=== PATIENT | female | born 1985 | race Caucasian/White ===

== ENCOUNTER 2019-04-01 08:36 | Inpatient (IN) | payer BC ==
[~2019-04-01] VITALS: Ht 170.2 cm; Wt 125.6 kg
[2019-04-01 09:26] VITALS: Ht 170.2 cm; Wt 125.6 kg
[2019-04-01] MEDS ORDERED: MISOPROSTOL 200 MCG TAB PR PRN ×2 (09:30→12:00)
[2019-04-01] MEDS ORDERED: CEFAZOLIN 3 GM in DEXTROSE 5% 100 ML IV ONE (09:30)
[2019-04-01] MEDS ORDERED: OXYTOCIN 30 UNITS/LR 500 ML IV PRN ×2 (09:30→12:00)
[2019-04-01] MEDS ORDERED: METHYLERGONOVINE 0.2 MG INJ IM PRN ×2 (09:30→12:00)
[2019-04-01] MEDS ORDERED: CARBOPROST 250 MCG INJ IM PRN ×2 (09:30→12:00)
--- NOTE | 2019-04-01 10:06 | PREAC ---
Date/Time of Note Date/Time of Note DATE: 04/01/19 TIME: 10:05 Anesthesia Eval and Record Evaluation Time Pre-Procedure Interview DATE: 04/01/19 TIME: 10:05 Age 33 Sex female NPO: 8 hrs Preoperative diagnosis previous c section Planned procedure repeat c section Past Medical History Past Medical History: Includes GI: Obesity Surgery & Anesthesia Issues No known issue Meds Anticoagulation: No Beta Spencer within 24 hr: No Reason Beta Spencer not given: Pt. not on B-Spencer Current Medications Lactated Ringer's 1,000 ml @ 125 mls/hr Q8H IV ; Start 04/01/19 at 09:04 Cefazolin Sodium 3 gm/Dextrose 100 ml @ 100 mls/hr ONCE ONCE IV ; Start 04/01/19 at 09:30; Stop 04/01/19 at 10:29; Status UNV Oxytocin/Lactated Ringer's 500 ml @ 0 mls/hr ONCE PRN IV .VAGINAL BLEEDING; Start 04/01/19 at 09:30 Methylergonovine Maleate (Methergine) 0.2 mg ONCE PRN IM .VAGINAL BLEEDING; Start 04/01/19 at 09:30 Carboprost Tromethamine (Hemabate) 250 mcg ONCE PRN IM .VAGINAL BLEEDING; Start 04/01/19 at 09:30 Misoprostol (Cytotec) 1,000 mcg ONCE PRN SD .VAGINAL BLEEDING; Start 04/01/19 at 09:30 Meds reviewed: Yes Allergies Coded Allergies: Penicillins (Verified Allergy, Unknown, 04/01/19) Allergies Reviewed: Yes Labs/Studies Labs Reviewed: Reviewed by anesthesiologist Result Diagram: 04/01/19919 Laboratory Tests 04/01/19 09:20 test: N/A Pre-procedure Exam Airway: Adequate mouth opening, Adequate thyromental dist Mallampati: Mallampati IV Teeth: Normal Lung: Normal Heart: Normal ASA Physical Status ASA physical status: 2 Emergency: None Pre-operative Attestations Prior to commencing anesthesia and surgery, the patient was re-evaluated, there was verification of: *The patient's identity *The results of appropriate recent lab work and preoperative vital signs *The above evaluation not changing prior to induction *Anesthetic plan, risk benefits, alternative and complications discussed with patient/family; questions answered; patient/family understands, accepts and wishes to proceed. CYNTHIA KINSEY DO April 01, 2019 10:06
[2019-04-01] MEDS: LACTATED RINGER'S 1,000 ML IV SCH ×2 (10:07→10:27)
--- NOTE | 2019-04-01 10:07 | PREOPHP ---
DATE OF ADMISSION: 04/01/2019 HISTORY OF PRESENT ILLNESS: Ms. Thi Cooper is a 33-year-old, 6, para 3, EDC 9 intrauterine at 39 weeks gestational age, admitted today for elective repeat del [facility]. She denies any contractions, vaginal bleeding, or discharge. She reports good movement . Her care took place with Dr. Najera. PAST MEDICAL HISTORY: None. MEDICATIONS: vitamins. PAST SURGICAL HISTORY: x1 previous section secondary to twin gestation via IVF/surrogacy. OBSTETRICAL HISTORY: x1 vaginal delivery, x1 , x2 missed AB. GYNECOLOGIC HISTORY: 12, regular 3 to 4 days. She denies any sexually transmitted infections. Sexu ally active with 1 partner. SOCIAL HISTORY: She denies any smoking, drugs or alcohol. FAMILY HISTORY: None. REVIEW OF SYSTEMS: All within normal except history of present illness. PHYSICAL EXAMINATION: HEENT: Within normal. LUNGS: CTA bilateral. CARDIOVASCULAR: S1, S2, regular rhythm. ABDOMEN: Gravid, nontender. Negative CVA bilateral. EXTREMITIES: Negative. No calf tenderness. PELVIC: Vaginal exam deferred. heart tracing category 1. TOCO, occasional contractions. ASSESSMENT: 1. Term at 39 weeks gestational age, desires elective repeat delivery with bilate ral tubal sterilization. PLAN: Consent for a repeat delivery with bilateral tubal sterilization. Risks, benefits an d alternatives were explained. All questions were answered. Dictated By: CHRISTINE ORO MD ME/NTS Conf#: [id number] DID#: [id number] CC: CHRISTINE ORO MD;*EndCC*
[2019-04-01] MEDS ORDERED: CLINDAMYCIN 900 MG/D5W (PMX) 50 ML IVPB SCH ×2 (10:10→12:00)
[2019-04-01] MEDS ORDERED: NALOXONE (0.4 MG/ML) INJ IV PRN (10:30)
[2019-04-01] MEDS ORDERED: GENTAMICIN 80 MG/NS (PMX) 50 ML IVPB SCH (10:30)
[2019-04-01] MEDS ORDERED: ZOLPIDEM 5 MG TAB PO PRN (10:30)
[2019-04-01] MEDS ORDERED: ONDANSETRON 4 MG INJ IV PRN (10:30)
[2019-04-01] MEDS ORDERED: DIPHENHYDRAMINE 50 MG INJ IV PRN (10:30)
[2019-04-01] MEDS ORDERED: HYDROmorphONE 0.5 MG/0.5 ML SYG IV PRN ×2 (10:30)
[2019-04-01] MEDS ORDERED: PHENYLephrine (100 MCG/ML) 10ML SYG ONE (10:43)
[2019-04-01] MEDS ORDERED: morphine SULFATE/PF (10 MG/10 ML) INJ ONE (10:43)
[2019-04-01] MEDS ORDERED: FENTAnyl 50 MCG/ML VIAL ONE (10:43)
[2019-04-01] MEDS ORDERED: DEXAMETHASONE 4 MG/ML 1 ML INJ ONE (10:43)
[2019-04-01] MEDS ORDERED: OXYTOCIN 30 UNITS/LR 500 ML IV SCH ×2 (11:55→12:30)
--- NOTE | 2019-04-01 11:55 | OPPN ---
Date/Time of Note Date/Time of Note DATE: 04/01/19 TIME: 11:52 Operative Report Planned Procedure Procedure date April 01, 2019 Procedure(s) repeat low transverse CD with bilateral salpingectomy Performed by see signature line Call Center Receptionist: JHONY WILKS MD 2nd Call Center Receptionist none Anesthesiologist: CYNTHIA KINSEY DO Pre-procedure diagnosis iup at 39 wks ga previous CD desire elective CD with bilateral tubal sterilization [id number] Anesthesia Type: [id number] spinal Post-Procedure Post-procedure diagnosis same Findings a viable female 8/9 weight 3790 gram, normal uterus tubes and ovaries Estimated Blood Loss: 500 - 600 mls Specimen(s) right and left fallopian tubes Grafts/Implant(s) none Complication(s) none CHRISTINE ORO MD April 01, 2019 11:55
--- NOTE | 2019-04-01 11:58 | PAC ---
Date/Time of Note Date/Time of Note DATE: 04/01/19 TIME: 11:58 Post-Anesthesia Notes Post-Anesthesia Note Last documented vital signs 105/62 75 99% 98 19 Activity: WNL Respiratory function: WNL Cardiovascular function: WNL Mental status: Baseline Pain reasonably controlled: Yes Hydration appropriate: Yes Nausea/Vomiting absent: Yes CYNTHIA KINSEY DO April 01, 2019 11:58
[2019-04-01] MEDS ORDERED: NACL 0.9% 3 ML SYG IV SCH (12:00)
[2019-04-01] MEDS ORDERED: OXYCODONE/ACETAMINOPHEN (5/325) TAB PO PRN (12:00)
[2019-04-01 14:20] VITALS: BP 127/73; PULSE 77; RESP 18
[2019-04-01] MEDS: KETOROLAC 30 MG INJ IV PRN (14:36)
[2019-04-01 15:00] VITALS: BP 129/71; PULSE 80; RESP 18
[2019-04-01 16:15] VITALS: BP 117/68; PULSE 86; RESP 18
[2019-04-01] MEDS: CLINDAMYCIN 900 MG/D5W (PMX) 50 ML IVPB SCH (18:58)
[2019-04-01 20:00] VITALS: BP 101/59; PULSE 88; RESP 16
[2019-04-02] VITALS: BP 108/60; PULSE 86; RESP 17
[2019-04-02] MEDS: CLINDAMYCIN 900 MG/D5W (PMX) 50 ML IVPB SCH ×2 (02:30→10:46)
[2019-04-02 04:00] VITALS: BP 96/55; PULSE 86; RESP 17
[2019-04-02] MEDS: IBUPROFEN 800 MG TAB PO SCH ×3 (06:00→21:35)
[2019-04-02 08:00] VITALS: BP 117/57; PULSE 88; RESP 17
[2019-04-02] MEDS: KETOROLAC 30 MG INJ IV PRN (09:10)
--- NOTE | 2019-04-02 09:39 | OPR ---
DATE OF OPERATION: 04/01/2019 PREOPERATIVE DIAGNOSES: Intrauterine at 39 weeks gestational age, previous , umberto res elective repeat delivery with bilateral tubal sterilization. POSTOPERATIVE DIAGNOSES: Intrauterine at 39 weeks gestational age, previous , tariq ires elective repeat delivery with bilateral tubal sterilization. OPERATION PERFORMED: Repeat low transverse delivery with bilateral salpingectomy. SURGEON: Pacheco Oro M.D. PRESIDENTIAL SUPPORT SPECIALIST: Dr. Wyatt ANESTHESIA: Spinal. ANESTHESIOLOGIST: Dr. Colon. COMPLICATIONS: None. ESTIMATED BLOOD LOSS: 500 mL. FINDINGS: A viable female, 8 and 9 respectively at 1 and 5 minutes, weight 3790 grams. Normal uterus, tubes and ovaries. PATHOLOGY: Left and right fallopian tube. DESCRIPTION OF PROCEDURE: After explaining the risks, benefits and alternatives, the patient and con sent signed in chart, the patient was taken to the operating room where spinal anesthesia was found t o be adequate. She was then prepared and draped in normal sterile fashion in dorsal supine position with a leftward tilt. A Pfannenstiel skin incision was then made with a scalpel and carried to the u nderlying of the fascia. The fascia was incised in the midline and incision was extended laterally w ith Barron scissors. The superior aspect of fascial incision was grasped with curved clamps, elevated and the underlying rectus muscles dissected off bluntly. Attention was then turned to the inferior a spect of the incision which in similar fashion was grasped, tented up with curved clamps and rectus m uscle dissected off bluntly. The rectus muscle was in midline and the peritoneum was enter ed sharply with Metzenbaum scissors. The peritoneal incision was extended superiorly inferiorly with good visualization of bladder. The bladder blade was then inserted and the lower uterine segment in cised in transverse fashion with the scalpel. The uterine incision was extended laterally. The blad vania blade was removed and the 's head atraumatically. The nose and mouth were suctioned and co rd clamped and cut. The was handed off to the waiting big data solutions architect. The placenta was then re moved. The uterus extracted of all clots and debris. The uterine incision was repaired with 1-0 chr omic in a running locked fashion. A second layer of same suture was used for imbrication obtaining h emostasis. At this point, 2 Elian clamps were used to grasp the left fallopian tube. The entire l eft fallopian tube was excised with a 2-0 plain gut x2. Similarly, the right fallopian tube was exci sed. The uterus was returned to the abdomen. Hemostasis was assured. The gutters were cleared of a ll clots. The peritoneum and rectus abdominis muscles were reapproximated with 3-0 Vicryl in an inte rrupted fashion. The fascia was reapproximated with 0 Vicryl in a running fashion. The subcutaneous tissue was reapproximated with 2-0 plain gut in a running fashion. The skin was closed with absorba ble aniceto. The patient tolerated procedure well. Sponge, lap and needle counts were correct. The patient was taken to recovery room in stable condition. Dictated By: PACHECO KAPOOR/WAGNER Conf#: [id number] DID#: [id number] CC: PACHECO ORO MD;*EndCC*
[2019-04-02] MEDS: OXYCODONE/ACETAMINOPHEN (5/325) TAB PO PRN (10:54)
[2019-04-02 12:00] VITALS: BP 123/73; PULSE 79; RESP 19
[2019-04-02 16:19] VITALS: BP 103/59; PULSE 83; RESP 18
--- NOTE | 2019-04-02 17:11 | QN ---
Documentation Comment progress note pod 1 patient seen and evaluated no complaints vs stable afebrile ab dressing clean/dry no distention extremity no edema no calf tenderness a/ sp cd pod 1 stable afebrile p/ iron supplement encourage ambulation CHRISTINE ORO MD April 02, 2019 17:11
[2019-04-02 19:50] VITALS: BP 108/60; PULSE 89; RESP 18
[2019-04-02] MEDS: FERROUS SULFATE (EC) 325 MG TAB PO SCH (21:34)
[2019-04-03 04:00] VITALS: BP 111/58; PULSE 75; RESP 18
[2019-04-03] MEDS: OXYCODONE/ACETAMINOPHEN (5/325) TAB PO PRN ×4 (04:01→19:20)
[2019-04-03] MEDS: IBUPROFEN 800 MG TAB PO SCH ×3 (05:36→22:53)
[2019-04-03 07:45] VITALS: BP 140/88; PULSE 89; RESP 18
[2019-04-03] MEDS: FERROUS SULFATE (EC) 325 MG TAB PO SCH ×2 (09:12→22:53)
--- NOTE | 2019-04-03 12:57 | QN ---
Documentation Comment progress note pod 2 patient seen and evaluated no complaints vs stable afebrile ab clean/dry/intact no distention extremity no edema no calf tenderness a/ sp cd pod 2 stable afebrile p/ discharge home tomorrow CHRISTINE ORO MD April 03, 2019 12:57
--- NOTE | 2019-04-03 12:59 | PD.PPDC ---
PHOTOGRAPHIC DEVELOPER AND PRINTER Discharge Instruction Condition [id number] Patient Condition: [id number] Good Diet [id number] Diet: Artcs1v Resume Regular Diet Activity/Restrictions [id number] Activity: Gtcax7s Normal Activity May Shower Follow-up Follow-up with Physician: 2, Week/Weeks Return to clinic for [id number] SUPPLIER SPECIALIST Instructions: Fhftq5g Fever greater than 101 Chills Worsening abdominal pain Excessive Vaginal Bleeding More than 2 pads per hour Unable to tolerate diet [id number] OB Instructions: Rrwdt4r Breast Tenderness Depression Blurried Vision Headache [id number] Surgical Instructions: Ahxxi9e Incisional Drainage Incisional Redness CHRISTINE ORO MD April 03, 2019 12:59
[2019-04-03 15:45] VITALS: BP 133/84; PULSE 79; RESP 16
[2019-04-03 20:30] VITALS: BP 138/70; PULSE 79; RESP 18
--- NOTE | 2019-04-03 21:58 | DS ---
DATE OF ADMISSION: 04/01/2019 DATE OF DISCHARGE: PRIMARY DIAGNOSES: 1. Intrauterine at 39 weeks' gestational age. 2. Previous section. 3. Desires elective repeat delivery with bilateral tubal sterilization. PROCEDURE: Repeat low transverse delivery with bilateral salpingectomy. CONDITION ON DISCHARGE: Stable. ACTIVITY: None per vagina. No heavy lifting x6 weeks. DIET: Regular. MEDICATIONS ON DISCHARGE: 1. Motrin. 2. Iron. 3. Colace. HOSPITAL COURSE: Ms. Thi Cooper underwent a repeat delivery with bilateral tubal bronson rilization on 04/01/2019. She had a viable female, 8 and 9 respectively at 1 and 5 minutes, we ight 3790 grams. She had uneventful postop day 1, 2 and she will be discharged on postop day 3. Her incision is clean, dry and intact. She is ambulating, tolerating diet, positive flatulence, positiv e bowel movement. FOLLOWUP: She will follow up in the clinic in 2 weeks for /postop care. Dictated By: CHRISTINE KAPOOR/WAGNER Conf#: [id number] DID#: [id number]
[2019-04-04 04:30] VITALS: BP 115/66; PULSE 74; RESP 18
[2019-04-04] MEDS: IBUPROFEN 800 MG TAB PO SCH (05:55)
[2019-04-04] MEDS: OXYCODONE/ACETAMINOPHEN (5/325) TAB PO PRN (06:54)
[2019-04-04 08:00] VITALS: BP 135/85; PULSE 86; RESP 18
[2019-04-04] MEDS ORDERED: MICONAZOLE 2% 45 GM VAG CR VAG SCH (09:00)
[2019-04-04] MEDS: FERROUS SULFATE (EC) 325 MG TAB PO SCH (10:12)
--- NOTE | 2019-04-05 11:48 | DELSUM ---
Delivery Summary A-C Datetime Report Generated by CPN: 04/05/2019 11:47 DELIVERY PERSONNEL Reservations Manager: Villondo, Kayce MATERNAL INFORMATION Delivery Anesthesia: Spinal Medications in Delivery: See anesthesiology notes Delivery QBL (ml): 500 Placenta Cultured: No Maternal Complications: None LABOR SUMMARY EDC: 04/08/2019 00:00 No. Babies in Womb: 1 Attempted: No Labor Anesthesia: None LABOR INFORMATION Reason for Induction: Not Applicable Oxytocin: N/A Group B Beta Strep: Negative Antibiotics # of Doses: 2 Antibiotics Time of Last Dose: 04/01/2019 10:42 Steroids Given: None Reason Steroids Not Administered: Not Applicable MEMBRANES Membranes Rupture Method: Artificial Rupture of Membranes: 04/01/2019 11:21 Length of Rupture (hr): 0.00 Amniotic Fluid Color: Clear Amniotic Fluid Amount: Moderate Amniotic Fluid Odor: None STAGES OF LABOR Stage 3 hr: 0 Stage 3 min: 2 CSECTION DELIVERY Primary Indication: Repeat Elective Secondary Indication: Repeat Elective CSection Urgency: Elective CSection Incidence: Repeat Labor: No Labor Elective: N/A CSection Incision: Lower Uterine Transverse Sterilization Procedure: Cathie BABY A INFORMATION Infant Delivery Date/Time: 04/01/2019 11:21 Method of Delivery: Born in Route : Yes : N/A Forceps: N/A Vacuum Extraction: N/A Shoulder Dystocia : N/A SHOULDER DYSTOCIA BABY A Infant Delivery Date/Time: 04/01/2019 11:21 PRESENTATION/POSITION BABY A Presentation: Cephalic Cephalic Presentation: Vertex Vertex Position: Left Occipital Anterior Breech Presentation: N/A PLACENTA INFORMATION BABY A Placenta Delivery Time : 04/01/2019 11:23 Placenta Method of Delivery: Manual Removal Placenta Status: Delivered SCORES BABY A Heart Rate 1 min: >100 bpm Resp Effort 1 min: Good Cry Reflex Irritability 1 min: Cough/Sneeze/Pulls Away Muscle Tone 1 min: Active Motion Color 1 min: Blue/Pale Resuscitation Effort 1 min: Tactile Stimulation SCORE 1 MIN: 8 Heart Rate 5 min: >100 bpm Resp Effort 5 min: Good Cry Reflex Irritability 5 min: Cough/Sneeze/Pulls Away Muscle Tone 5 min: Active Motion Color 5 min: Body [place], Extremit Blue Resuscitation Effort 5 min: Oxygen SCORE 5 MIN: 9 INFANT INFORMATION BABY A Gestational Age at Delivery: 39.0 Gestational Status: Full Term- 39- 40.6 Weeks Infant Outcome : Liveborn Infant Condition : Stable Infant Sex: Female IDENTIFICATION/MEDS BABY A ID Band Number: [id number] ID Band Location: Right Leg; Left Arm Sensor Applied: Yes Sensor Number: [id number] Sensor Location : Cord Clamp Vitamin K Given : Not Given Erythromycin Given: Not Given WEIGHT/LENGTH BABY A Birthweight (gm): 3790 Infant Weight (lb): 8 Infant Weight (oz): 6 Infant Length (in): 21.00 Length (cm): 53.34 CORD INFORMATION BABY A No. Cord Vessels: 3 Nuchal Cord : N/A Cord Blood Taken: Yes Suction: Mouth; Nose ASSESSMENT BABY A Complications: None Physical Findings at Delivery: Within Normal Limits Infant Respirations: Appears Normal Metal Drill Operator/ALS Called : No Infant Care By: Zachary Juarez RN Transferred To: Remains with Mother
== END 2019-04-04 11:25 | disposition home or self-care (01) | DRG 785 ==
LOC: L-D 08:36 → PP1 14:27
PROVIDERS: ADMIT Obstetrics & Gynecology; ATTEND Obstetrics & Gynecology
PROC: 0UT70ZZ Resection of Bilateral Fallopian Tubes, Open Approach (ICD-10-PCS; 2019-04-01)
PROC: 10D00Z1 Extraction of Products of Conception, Low, Open Approach (ICD-10-PCS; principal; 2019-04-01 10:30)
DX: O65.5 Obstructed labor due to abnormality of maternal pelvic organs (principal); O34.211 Maternal care for low transverse scar from previous cesarean delivery; Z3A.39 39 weeks gestation of pregnancy; Z37.0 Single live birth; Z30.2 Encounter for sterilization
CPT/HCPCS: 85025; 85610; 85730; 86592; 86850; 86900; 86901; 88302; 99464; J1100; J1200; J1580; J1885; J2274; J2370; J2405; J2590; J3010; J7120